=== PATIENT | female | born 1990 | race Caucasian/White ===

== ENCOUNTER 2021-09-17 22:25 | Emergency (ER) | payer BC ==
--- NOTE | 2021-09-17 23:15 | EDM.PDOC ---
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 She has relatively no symptoms at all. She is a G1, P0 and now Ab1. She does not know her blood type. She not having significant Cramping bleeding orthostasis or diaphoresis. Review of systems: As per history of present illness and below otherwise all systems reviewed and negative. Past medical history: As per history of present illness and as reviewed below otherwise noncontributory. Surgical history: As per history of present illness and as reviewed below otherwise noncontributory. Social history: No reported history of drug or alcohol abuse. Family history: As per history of present illness and as reviewed below otherwise noncontributory. Physical exam: Constitutional - well developed, well-nourished and in no acute distress HEENT - normocephalic, no evidence of trauma - external nose and mouth normal - no mass in neck and no JVD - mucosae moist EYES - full EOM, PERRL, no icterus - no evidence of inflammation, injection, or drainage Respiratory - no respiratory distress, equal bilateral expansion GI - abdomen soft without distension or organomegaly - no guard or rebound Musculoskeletal no gross deformity of long bones or joints - no tenderness, swelling or edema Neurologic - Alert and oriented times four - CN II-XII grossly intact - motor sensory and coordination symmetrically normal Psychiatric - appropriate mood and affect with normal thought content Hematologic - No petechiae or purpura - mucosa appropriate color and sclera not pale - normal nail bed color and refill Integument - no rash or evidence of trauma - normal turgor Patient has what appears to me to be about a 12-week fetus in a [employer] container. She is not Voodoo and does not want it to her needed baptized. Diagnostics: [] Therapeutics: [] Impression: [] Plan: [] Definitive disposition and diagnosis as appropriate pending reevaluation and review of above. Lower Back Pain Score (Numeric/FACES): 7 - Related Data Allergies Allergy/AdvReac Type Severity Reaction Status Date / Time No Known Allergies Allergy Verified 09/17/21 22:48 Home Meds: Home Meds . [No Known Home Meds] 02/10/15 [History] Social & Family History - Tobacco Use Second Hand Smoke Exposure: No - Caffeine Use Caffeine Use: Reports: None - Recreational Drug Use Recreational Drug Use: No ED ROS GENERAL - Review of Systems Review Of Systems: Comprehensive ROS is negative, except as noted in HPI. ED EXAM, GENERAL - Physical Exam Exam: See Below Free Text/Narrative:: My physical exam is in the HPI Course - Vital Signs Last Recorded V/S: Last Vital Signs Temp 35.7 C L 09/17/21 22:44 Pulse 94 09/17/21 22:44 Resp 20 09/17/21 22:44 BP 146/90 H 09/17/21 22:44 Pulse Ox 97 09/17/21 22:44 - Orders/Labs/Meds Orders: Active Orders 24 hr Category Date Time Status Specimens to Lab, Nursing [RC] ASDIRECTED Care 09/17/21 23:31 Ordered Labs: Laboratory Tests 09/17/21 09/17/21 09/17/21 Range/Units 23:05 23:05 23:05 WBC 11.64 H (4.0-11.0) K/uL RBC 4.68 (4.30-5.90) M/uL Hgb 11.5 L (12.0-16.0) g/dL Hct 35.8 L (36.0-46.0) % MCV 76.5 L (80.0-98.0) fL MCH 24.6 L (27.0-32.0) pg MCHC 32.1 (31.0-37.0) g/dL RDW Std Deviation 43.9 (28.0-62.0) fl RDW Coeff of Mckenzie 16 H (11.0-15.0) % Plt Count 321 (150-400) K/uL MPV 8.90 (7.40-12.00) fL Neut % (Auto) 72.7 (48.0-80.0) % Lymph % (Auto) 17.3 (16.0-40.0) % [place] % (Auto) 7.6 (0.0-15.0) % Eos % (Auto) 2.3 (0.0-7.0) % Baso % (Auto) 0.1 (0.0-1.5) % Neut # (Auto) 8.5 H (1.4-5.7) K/uL Lymph # (Auto) 2.0 (0.6-2.4) K/uL [place] # (Auto) 0.9 H (0.0-0.8) K/uL Eos # (Auto) 0.3 (0.0-0.7) K/uL Baso # (Auto) 0.0 (0.0-0.1) K/uL Nucleated RBC % 0.0 /100WBC Nucleated RBCs # 0 K/uL HCG, Qual POSITIVE H (NEG) Blood Type O POSITIVE Departure - Departure Time of Disposition: 23:32 Disposition: Home, Self-Care 01 Condition: Good Clinical Impression: Complete - Discharge Information Instructions: Miscarriage, [id number] Forms: ED Department Discharge Additional Instructions: Return to the emergency department if you have a high fever a lot of bleeding or severe pain- [facility] [address] [place] [address] [facility] [address] [place] [address] The following information is given to patients seen in the emergency department who are being discharged to home. This information is to outline your options for follow-up care. We provide all patients seen in our emergency department with a follow-up referral. The need for follow-up, as well as the timing and circumstances, are variable depending upon the specifics of your emergency department visit. If you don't have a primary care physician on staff, we will provide you with a referral. We always advise you to contact your personal physician following an emergency department visit to inform them of the circumstance of the visit and for follow-up with them and/or the need for any referrals to a consulting specialist. The emergency department will also refer you to a specialist when appropriate. This referral assures that you have the opportunity for follow-up care with a specialist. All of these measure are taken in an effort to provide you with optimal care, which includes your follow-up. Under all circumstances we always encourage you to contact your private physician who remains a resource for coordinating your care. When calling for follow-up care, please make the office aware that this follow-up is from your recent emergency room visit. If for any reason you are refused follow-up, please contact the [facility] Emergency Department at and asked to speak to the emergency department charge nurse. Sepsis Event Note (ED) - Evaluation Sepsis Screening Result: No Definite Risk - Focused Exam Vital Signs: Vital Signs Temp Pulse Resp BP Pulse Ox 09/17/21 22:44 35.7 C L 94 20 146/90 H 97 - My Orders Last 24 Hours: My Active Orders 09/17/21 23:31 Specimens to Lab, Nursing [RC] ASDIRECTED - Assessment/Plan Last 24 Hours: My Active Orders 09/17/21 23:31 Specimens to Lab, Nursing [RC] ASDIRECTED
[2021-09-18 01:06] VITALS: BP 133/91; PULSE 82
== END 2021-09-17 23:45 | disposition home or self-care (01) ==
LOC: MW.ED 22:25
DX: O03.9 Complete or unspecified spontaneous abortion without complication (principal)
CPT/HCPCS: 36415; 84703; 85025; 86900; 86901; 99284